=== PATIENT | female | born 1975 | race African-American/Black ===

== ENCOUNTER 2017-01-25 20:52 | Emergency (ER) | payer BC ==
[~2017-01-25] VITALS: Ht 172.7 cm; Wt 136.1 kg
[2017-01-25] MEDS ORDERED: IV NORMAL SALINE 1000ML BAG 1,000 ML IV ONE (21:15)
[2017-01-25 21:17] LABS: BASO # 0.1 x10^3/uL (0.0-0.2); BASO % 1 % (0-3); EOS % 2 % (0-3); HEMATOCRIT 35.8 % (36.0-47.0); LYMPH # 2.3 x10^3/uL (1.0-4.8); LYMPH % 39 % (24-48); MEAN CORPUSCULAR HEMOGLOBIN 30 pg (25-35); MEAN CORPUSCULAR HGB CONC 34 g/dL (31-37); MEAN CORPUSCULAR VOLUME 90 fL (79-100); MONO % 11 % (0-9); NEUT % 47 % (31-73); PLATELET COUNT 210 x10^3/uL (140-400); RED BLOOD COUNT 3.99 x10^6/uL (3.50-5.40); RED CELL DISTRIBUTION WIDTH 13.6 % (11.5-14.5); WHITE BLOOD COUNT 5.9 x10^3/uL (4.0-11.0)
[2017-01-25 21:27] LABS: CALCIUM 9.1 mg/dL (8.5-10.1); GFR 60.8; POTASSIUM 3.3 mmol/L (3.5-5.1)
[2017-01-25 21:32] VITALS: BP 149/84
[2017-01-25 21:34] LABS: ALBUMIN 3.3 g/dL (3.4-5.0); ALBUMIN/GLOBULIN RATIO 0.8 (1.0-1.7); TOTAL BILIRUBIN 0.4 mg/dL (0.2-1.0); TOTAL PROTEIN 7.4 g/dL (6.4-8.2)
[2017-01-25] MEDS ORDERED: IBUPROFEN 600 MG TABLET. PO ONE (22:15)
[2017-01-25 22:16] LABS: BILIRUBIN,URINE SMALL (NEG); GLUCOSE,URINE NEGATIVE (NEG); NITRITE,URINE NEGATIVE (NEG); PH,URINE 5.5; PROTEIN,URINE NEGATIVE (NEG-TRACE); UROBILINOGEN,URINE 0.2 mg/dL (0.2 mg/dL)
[2017-01-25 22:28] LABS: BACTERIA,URINE FEW /HPF (0-FEW); RBC,URINE OCC /HPF (0-2); SQUAMOUS EPITHELIAL CELL,UR MOD /LPF; WBC,URINE OCC /HPF (0-4)
--- NOTE | 2017-01-25 23:04 | RAD ---
PROCEDURE CT head without contrast HISTORY Syncope, head trauma, dizziness TECHNIQUE Exposure: One or more of the following individualized dose reduction techniques were utilized for this exam: 1. Automated exposure control. 2. Adjustment of the mA and/or kV according to patient size. 3. Use of iterative reconstruction technique. [address] imaging skullbase to vertex COMPARISON No prior FINDINGS No intracranial hemorrhage, mass, hydrocephalus, extra-axial fluid collections or infarction. Orbits, mastoids, paranasal sinuses and bones are unremarkable. IMPRESSION No acute intracranial CT abnormality. Electronically signed by: León Callejas MD (January 25, 2017 23:02:26)
--- NOTE | 2017-01-25 23:48 | PHYS DOC ---
Past Medical History Past Medical History: No Pertinent History Past Surgical History: Cholecystectomy Alcohol Use: None Drug Use: None Adult General Chief Complaint Chief Complaint: DIZZY/LIGHT HEADED HPI HPI Patient is a 41 year old female with no past medical history presents here today secondary to dizziness this evening. Patient has any history of coronary disease, hypertension, diabetes, CHF, COPD, PE, DVT, liver longer kidney problems. Patient reports she did have a cholecystectomy, no hysterectomy and appendectomy in the past. Patient does not smoke drink or do any drugs. Patient reports she is allergic to aspirin irregular stomach discomfort and oriented to amoxicillin which is her hives. Patient denies any fevers shakes chills nausea vomiting diarrhea chest pain shortness of breath abdominal pain dysuria frequency urgency vaginal bleeding or vaginal discharge blurred vision low- vision weakness in her upper or lower extremities. Patient reports her last menstrual period was last week. Patient denies any radiating pain jaw pain chest pain or back pain. Patient reports that she was by her car loading stuff in her car when she started feeling lightheaded. Patient reports that she is not sure if she passed out however the says that he heard by report that she may of had a full syncopal episode. Patient denies any pain to her upper or lower 70s. Patient denies any pain in her neck back or head. Patient not feel like she hit her head or injured herself in any way. Physical exam was unremarkable. Patient is alert awake oriented 3. Patient has a nonfocal neuro exam. Patient's cranial nerves to 12 are intact. Patient has a normal cerebellar exam. Patient is no nystagmus. Patient has normal finger to nose. Patient has normal gait. She's ER workup consisted of an EKG that was unremarkable. Normal sinus rhythm at a heart rate of [address]-T wave abnormalities no evidence of PE STEMI. Patient's lab workup in the ER was also unremarkable. The only thing slightly abnormal with a UA which revealed a specific gravity 1.030. Patient's CT scan of her head was unremarkable no evidence of bleed tumors fracture or trauma. A/P #1 dizziness/possible syncopal episode. Patient is clinically and hemodynamically stable this time. Patient reports her dizziness describes it more as feeling like she is going to pass out rather than feeling vertiginous. Patient reports that she has been asymptomatic the entire time she's been here. Patient feels improved after the IV fluids in the ER. Patient's ER workup is benign unremarkable. Patient's CT scan labs were all within normal limits and not necessarily clarifying the cause of her symptoms. I discussed with the patient her symptoms and all the test results. Patient feels very comfortable with going home. Patient does have a primary care physician which she will follow-up with. There is currently no further indication for any further ER for hospital workup at this time. Patient was instructed to follow-up with her primary care physician for evaluation for an outpatient Holter monitor./ Review of Systems Review of Systems Constitutional: Denies fever or chills [] Eyes: Denies change in visual acuity, redness, or eye pain [] All other review systems are negative except as documented in the history of present illness portion. Current Medications Current Medications Current Medications Medications (Trade) Dose Ordered Sig/Campbell Start Time Stop Time Status Last Admin Dose Admin Ibuprofen (Motrin) 600 mg 1X ONCE 01/25/17 22:15 01/25/17 22:26 DC 01/25/17 22:22 600 MG Sodium Chloride 1,000 ml @ 1,000 mls/hr 1X ONCE 01/25/17 21:15 01/25/17 22:14 DC 01/25/17 21:15 1,000 MLS/HR Allergies Allergies Allergies Coded Allergies Type Severity Reaction Last Updated Verified amoxicillin Allergy Mild HIVES 01/25/17 Yes aspirin Allergy Mild NAUSEA 01/25/17 Yes Physical Exam Physical Exam Constitutional:obese, no acute distress, non-toxic appearance. [] HENT: Normocephalic, atraumatic, bilateral external ears normal, oropharynx moist, no oral exudates, nose normal. [] Eyes: PERRLA, EOMI, conjunctiva normal, no discharge. [] Neck: Normal range of motion, no tenderness, supple, no stridor. [] Cardiovascular:Heart rate regular rhythm, no murmur [] Lungs & Thorax: Bilateral breath sounds clear to auscultation [] Abdomen: Bowel sounds normal, soft, no tenderness, no masses, no pulsatile masses. [] Skin: Warm, dry, no erythema, no rash. [] Back: No tenderness, no CVA tenderness. [] Extremities: No tenderness, no cyanosis, no clubbing, ROM intact, no edema. [] Neurologic: Alert and oriented X 3, normal motor function, normal sensory function, no focal deficits noted. [] Psychologic: Affect normal, judgement normal, mood normal. [] Current Patient Data Vital Signs Vital Signs Date Time Temp Pulse Resp B/P (MAP) Pulse Ox O2 Delivery O2 Flow Rate FiO2 01/25/17 21:32 80 20 149/84 (105) 100 Room Air 01/25/17 21:07 98.3 98.3 Lab Values Laboratory Tests Test 01/25/17 21:00 01/25/17 22:00 White Blood Count 5.9 x10^3/uL (4.0-11.0) Red Blood Count 3.99 x10^6/uL (3.50-5.40) Hemoglobin 12.0 g/dL (12.0-15.5) Hematocrit 35.8 % (36.0-47.0) L Mean Corpuscular Volume 90 fL (79-100) Mean Corpuscular Hemoglobin 30 pg (25-35) Mean Corpuscular Hemoglobin Concent 34 g/dL (31-37) Red Cell Distribution Width 13.6 % (11.5-14.5) Platelet Count 210 x10^3/uL (140-400) Neutrophils (%) (Auto) 47 % (31-73) Lymphocytes (%) (Auto) 39 % (24-48) Monocytes (%) (Auto) 11 % (0-9) H Eosinophils (%) (Auto) 2 % (0-3) Basophils (%) (Auto) 1 % (0-3) Neutrophils # (Auto) 2.7 x10^3uL (1.8-7.7) Lymphocytes # (Auto) 2.3 x10^3/uL (1.0-4.8) Monocytes # (Auto) 0.6 x10^3/uL (0.0-1.1) Eosinophils # (Auto) 0.1 x10^3/uL (0.0-0.7) Basophils # (Auto) 0.1 x10^3/uL (0.0-0.2) Sodium Level 143 mmol/L (136-145) Potassium Level 3.3 mmol/L (3.5-5.1) L Chloride Level 106 mmol/L (98-107) Carbon Dioxide Level 25 mmol/L (21-32) Anion Gap 12 (6-14) Blood Urea Nitrogen 12 mg/dL (7-20) Creatinine 1.0 mg/dL (0.6-1.0) Estimated GFR (Cockcroft-Gault) 60.8 BUN/Creatinine Ratio 12 (6-20) Glucose Level 127 mg/dL (70-99) H Calcium Level 9.1 mg/dL (8.5-10.1) Total Bilirubin 0.4 mg/dL (0.2-1.0) Aspartate Amino Transferase (AST) 16 U/L (15-37) Alanine Aminotransferase (ALT) 18 U/L (14-59) Alkaline Phosphatase 53 U/L (46-116) Troponin I Quantitative < 0.017 ng/mL (0.000-0.055) WU-Fxi-F-Type Natriuretic Peptide 31 pg/mL (0-124) Total Protein 7.4 g/dL (6.4-8.2) Albumin 3.3 g/dL (3.4-5.0) L Albumin/Globulin Ratio 0.8 (1.0-1.7) L Urine Collection Type Unknown Urine Color Yellow Urine Clarity Cloudy Urine pH 5.5 Urine Specific [place] >=1.030 Urine Protein Negative mg/dL (NEG-TRACE) Urine Glucose (UA) Negative mg/dL (NEG) Urine Ketones (Stick) Negative mg/dL (NEG) Urine Blood Negative (NEG) Urine Nitrite Negative (NEG) Urine Bilirubin Small (NEG) Urine Urobilinogen Dipstick 0.2 mg/dL (0.2 mg/dL) Urine Leukocyte Esterase Negative (NEG) Urine RBC Occ /HPF (0-2) Urine WBC Occ /HPF (0-4) Urine Squamous Epithelial Cells Mod /LPF Urine Amorphous Sediment Present /HPF Urine Bacteria Few /HPF (0-FEW) Urine Mucus Mod /LPF Laboratory Tests 01/25/17 21:00 Laboratory Tests 01/25/17 21:00 EKG EKG [] Radiology/Procedures Radiology/Procedures [] Course & Med Decision Making Course & Med Decision Making Pertinent Labs and Imaging studies reviewed. (See chart for details) [] Dragon Disclaimer Dragon Disclaimer This electronic medical record was generated, in whole or in part, using a voice recognition dictation system. Departure Departure Impression: Primary Impression: Syncope Additional Impressions: Dizziness Dehydration Disposition: HOME, SELF-CARE Condition: GUARDED Referrals: NO PCP (PCP) Patient Instructions: Syncope Problem Qualifiers Primary Impression: Syncope Syncope type: unspecified Qualified Codes: R55 - Syncope and collapse FIDELIA EWING MD January 25, 2017 23:48
--- NOTE | 2017-01-26 07:10 | RAD ---
Indication: Dizziness. Time of exam 2130 hours. No prior studies are available for comparison. FINDINGS: The heart size is normal. The lungs are clear. No pleural effusion or pneumothorax is identified. The pulmonary vascularity is normal. IMPRESSION: No acute abnormality detected.
--- NOTE | 2017-01-26 08:46 | EKG ---
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
== END 2017-01-26 | disposition home or self-care (01) ==
LOC: ER 20:52
DX: R55 Syncope and collapse (principal); E86.0 Dehydration; Z88.1 Allergy status to other antibiotic agents; Z88.6 Allergy status to analgesic agent
CPT/HCPCS: 36415; 70450; 71010; 80053; 81001; 83880; 84484; 85027; 93005; 96360; 99285; J7030